=== PATIENT | female | born 1940 | race Caucasian/White ===

== ENCOUNTER 2017-05-14 14:28 | Emergency (ER) | payer OTHER ==
[~2017-05-14] VITALS: Ht 162.6 cm; Wt 68.0 kg
[2017-05-14] MEDS ORDERED: SYNTHROID50 MCG (15:05)
== END 2017-05-14 17:36 | disposition home or self-care (01) ==
LOC: ER 14:28
DX: I83.891 Varicose veins of right lower extremity with other complications (principal)